=== PATIENT | female | born 1945 | race Caucasian/White ===

== ENCOUNTER 2018-03-21 15:57 | Inpatient (IN) | payer MEDICARE ==
--- NOTE | 2018-03-21 17:14 | RAD ---
CHEST ONE VIEW: 03/21/18 HISTORY: 72-year-old female with history of altered mental status. FINDINGS: Old granuloma calcifications. Heart size is within normal limits. The lungs are clear of acute proces s. No confluent pneumonia, overt edema, or pleural effusion. There is rotation to the right. IMPRESSION: Old granulomatous disease. Atherosclerosis of the aorta. No significant acute process. POS: [facility]
[2018-03-21 17:21] LABS: #Basophils 0.1 thou/uL (0.0-0.2); #Eosinphils 0.1 thou/uL (0.0-0.7); #Lymphocytes 1.7 thou/uL (1.20-3.40); #Monocytes 0.5 thou/uL (0.11-0.59); #Neutrophils 3.4 thou/uL (1.40-6.50); %Basophils 2.2 % (0.0-1.0); %Lymphocytes 28.9 % (21.0-51.0); Hemoglobin 13.8 g/dL (12.0-16.0); Mean Corpuscular Hemoglobin 31.8 pg (27.0-31.0); Mean Corpuscular Volume 93.5 fL (78.0-98.0); Mean Platelet Volume 7.8 fL (7.4-10.4); Platelet Count 211 thou/uL (130-400); RBC Distribution Width 11.5 % (11.5-14.5); Red Blood Cell (RBC) Count 4.34 mill/uL (4.20-5.40); White Blood Cell (WBC) Count 5.8 thou/uL (4.8-10.8)
[2018-03-21 17:36] LABS: ALT (SGPT) 11 U/L (8-55); AST (SGOT) 17 U/L (5-34); Albumin 4.1 g/dL (3.4-4.8); Alkaline Phosphatase 154 U/L (40-150); Anion Gap 14 mmol/L (10-20); BUN (Urea Nitrogen) 17 mg/dL (9.8-20.1); Bilirubin, Total 0.3 mg/dL (0.2-1.2); CK (CPK) 63 U/L (29-168); Calc. Creatinine Clearance 0 mL/min (70-130); Calcium 9.8 mg/dL (7.8-10.44); Carbon Dioxide 27 mmol/L (23-31); Chloride 106 mmol/L (98-107); Estimated GFR-MDRD 45; Globulin 3.3 g/dL (2.4-3.5); Glucose 94 mg/dL (83-110); Potassium 4.1 mmol/L (3.5-5.1); Protein, Total 7.4 g/dL (6.0-8.3); Sodium 143 mmol/L (136-145)
[2018-03-21 17:44] LABS: Bilirubin Negative (Negative); Blood, Urine Negative (Negative); Clarity CLEAR (Clear); Glucose, Urine (Dipstick) Negative (Negative); Leukocyte Negative (Negative); Nitrite Negative (Negative); Protein, Urine (Dipstick) Negative (Neg-Trace); Specific Gravity, Urine 1.019 (1.002-1.036)
--- NOTE | 2018-03-21 18:03 | CT ---
NONCONTRAST CT HEAD: 03/21/18 HISTORY: Altered mental status. COMPARISON: None available. FINDINGS: There are punctate low density areas seen within the posterior right internal capsule and in the infe rior aspect of the left basal ganglia which may represent tiny lacunar infarctions of indeterminate a ge. There is no evidence of acute cortical infarction, hemorrhage, mass effect, midline shift. There is mild cerebral volume loss. Ventricular system is mildly prominent and slightly out of proportion t o the degree of sulcal atrophy. This is likely attributable to greater central cerebral atrophy. The visualized paranasal sinuses and mastoid air cells are clear. Calvarial structures are intact. Th ere is a small osseous excrescence at the inner table right anterior frontal bone which may represen t small osseous excrescence or possibly a meningioma. This measures 11 mm. IMPRESSION: No acute intracranial abnormality demonstrated. POS: [facility]
[2018-03-21] MEDS ORDERED: Haloperidol Lactate 5 MG/ML VIAL ONE (19:18)
[2018-03-21] MEDS ORDERED: Acetaminophen 325 MG TAB PO PRN (21:35)
[2018-03-21] MEDS ORDERED: Lorazepam 2 MG/ML VIAL SLOW IVP PRN (21:35)
--- NOTE | 2018-03-22 00:26 | HP ---
The patient's primary care is out of town. CHIEF COMPLAINT: Fall with a seizure on yesterday. HISTORY OF PRESENT ILLNESS: Ms. Nixon is a pleasant 72-year-old female who has advanced Alzheimer's disease. She was brought in by her son and daughter-in- law as they are concerned that she had a fall yesterday and apparently had a seizure. They said they are only finding out today as the detention kept this from them. She also apparently had a seizure and a fall about 2 weeks ago. At that time, she was taken to the [facility] in [facility] as it is close to the [facility] in [place] where she resides. Apparently at that time, she was evaluated. Apparently, she had an echocardiogram done and an EEG was attempted but was not able to be completed. She says the neurologist saw her, but it sounds like they had difficulty with her workup and she was discharged and none of her medications were changed. The family was concerned because seemingly after this, her speech has gone down and it has become more jumbled and she seems to have physically declined more since then. They noticed bruising on her legs where she apparently has fallen and they have not been given much information from the detention and they are not sure if in fact she had a seizure or what these episodes are. Apparently when they do happen, she seems to get stiff and shakes, but there was no mention of any bowel or bladder dysfunction or loss, but they say they are only going by what the detention staff tells them and it has been very limited. REVIEW OF SYSTEMS: This is unobtainable due to the patient's advanced dementia. PAST MEDICAL HISTORY: Significant for: 1. Hypertension. 2. Hyperlipidemia. 3. Hypothyroidism. 4. Alzheimer's disease. 5. Heart murmur as well as severe hemorrhoids. PAST SURGICAL HISTORY: She has dentures, but no known other surgeries or procedures. ALLERGIES: NO KNOWN DRUG ALLERGIES. SOCIAL HISTORY: She is a former heavy drinker. No smoking. She is , has two children. Her son, César Nixon Jr., is her surrogate decision maker and they would like her to be a DNR. FAMILY HISTORY: Significant for hypertension, high cholesterol, and congestive heart failure in her mother as well as her mother had an abdominal aortic aneurysm. CURRENT MEDICATIONS: Include aspirin 81 mg daily, amlodipine 2.5 mg daily, atorvastatin 20 mg daily, BuSpar 7.5 mg twice a day, donepezil 10 mg daily, fluoxetine 40 mg daily, levothyroxine 88 mcg once daily, Namenda 5 mg twice a day, mirtazapine 15 mg daily, propranolol 10 mg three times a day, and Seroquel 25 mg once daily. PHYSICAL EXAMINATION: GENERAL: She is completely disoriented. She did not recognize her son or [id number]. She is well-developed and well-nourished, and appears to be in no acute distress. VITAL SIGNS: Blood pressure was 138/99, heart rate 56, respiratory rate of 18, and temperature was 98.3. HEENT: Pupils are equal, round, and reactive. Extraocular muscles are intact. Her sclerae anicteric. Throat, there is no erythema, no exudates. NECK: There is no adenopathy. No bruits. LUNGS: Clear to auscultation. There was no wheezing, no rales, no rhonchi. CARDIOVASCULAR: She had a normal S1, S2. I did not appreciate an S3 or S4. She had a slight grade 2/6 systolic murmur. ABDOMEN: Obese. It is soft. It is nontender and nondistended. Positive for bowel sounds. No rebound or guarding. EXTREMITIES: There is no clubbing or cyanosis. No edema. NEUROLOGIC: The exam is nonfocal. LABORATORY DATA: Her white blood cell count is 5.8, hemoglobin 13.8, hematocrit is 40.6, and platelet count is 211. Sodium is 143, potassium 4.1, chloride is 106 , CO2 is 27, BUN is 17, creatinine 1.17, and glucose is 94. Urinalysis was essentially negative. IMAGING: She had a CT scan of the brain, which was negative for any acute intracranial abnormalities. This is by my reading. Chest x-ray also had some old granulomatous disease. Heart size was normal also by my reading. ASSESSMENT: This is a pleasant 72-year-old female who was brought to the emergency room by her family for two concerns. 1. Possible seizure disorder, which has not been fully elucidated. 2. They want to place her in a different nursing facility. Possible seizure disorder. We will need to get the records from the [facility] in the [place], see what was attempted and what was accomplished. We will attempt an MRI. She may need sedation for this. We will also order an EEG and we will consult our neurologist on staff. We will hold off on any antiepileptic medications for now and place her on Ativan p.r.n. for seizures. We will consult Case Management with regard to placement. Hypertension- We will continue her usual antihypertensive medications, which include the amlodipine and propranolol as well as p.r.n. medications. Hypothyroidism- Again, restart her usual levothyroxine. She appears to be clinically euthyroid; and further recommendations are to follow. Job ID: [id number] [facility]
[2018-03-22 05:13] LABS: #Eosinphils 0.1 thou/uL (0.0-0.7); #Lymphocytes 1.8 thou/uL (1.20-3.40); #Monocytes 0.5 thou/uL (0.11-0.59); %Basophils 0.8 % (0.0-1.0); %Eosinophils 2.4 % (0.0-10.0); %Lymphocytes 32.8 % (21.0-51.0); %Monocytes 8.9 % (0.0-10.0); %Neutrophils 55.2 % (42.0-75.0); Hemoglobin 12.1 g/dL (12.0-16.0); Mean Corpuscular HGB CONC 33.8 g/dL (32.0-36.0); Mean Corpuscular Hemoglobin 31.5 pg (27.0-31.0); Mean Corpuscular Volume 93.3 fL (78.0-98.0); Mean Platelet Volume 8.1 fL (7.4-10.4); Platelet Count 166 thou/uL (130-400); RBC Distribution Width 11.5 % (11.5-14.5); Red Blood Cell (RBC) Count 3.85 mill/uL (4.20-5.40); White Blood Cell (WBC) Count 5.4 thou/uL (4.8-10.8)
[2018-03-22 05:25] LABS: Anion Gap 9 mmol/L (10-20); BUN (Urea Nitrogen) 19 mg/dL (9.8-20.1); Calc. Creatinine Clearance 42 mL/min (70-130); Carbon Dioxide 28 mmol/L (23-31); Chloride 109 mmol/L (98-107); Estimated GFR-MDRD 55; Glucose 91 mg/dL (83-110); Sodium 142 mmol/L (136-145)
[2018-03-22] MEDS ORDERED: Non-Formulary Item 1 EACH (Fluoxetine Hcl [Prozac] 40 MG) PO SCH (09:00)
[2018-03-22] MEDS ORDERED: Prevnar 13-Val Conj/PF 0.5 ML SYRINGE IM ONE (09:00)
[2018-03-22] MEDS ORDERED: Non-Formulary Item 1 EACH (Buspirone Hcl [Buspirone Hcl] 7.5 MG) PO SCH (09:00)
[2018-03-22] MEDS: busPIRone HCl 5 MG TAB PO SCH ×2 (11:32→20:14)
[2018-03-22] MEDS: FLUoxetine HCl 20 MG CAP PO SCH (11:32)
[2018-03-22] MEDS: Mirtazapine 15 MG TAB PO SCH (11:33)
[2018-03-22] MEDS: Aspirin 81 mg Enteric Coated Tablet PO SCH (11:33)
[2018-03-22] MEDS: Propranolol 10 MG TAB PO SCH ×3 (11:33→21:59)
[2018-03-22] MEDS: Donepezil HCl 10 MG TAB PO SCH (11:33)
[2018-03-22] MEDS: Amlodipine 5 MG TAB PO SCH (11:34)
--- NOTE | 2018-03-22 11:38 | MRI ---
BRAIN MRI WITH AND WITHOUT CONTRAST: Date: 03/22/18 INDICATION: Altered mental status. Reference made to head CT previous day. FINDINGS: Prominence of ventricular system. No acute territorial infarction, intracranial mass effect, or midli ne shift. There is mild chronic ischemic disease of the cerebral white matter. No pathologic intra-ax ial enhancement. There is prominent patient motion which degrades image quality and does limit evalua tion. IMPRESSION: 1. Enlarged ventricular system, which is out of proportion to size of cerebral sulci. This can be se en in the setting of normal pressure hydrocephalus. Correlate clinically. 2. No acute territorial infarction or mass effect. 3. Additional details are as described above. POS: [facility]
--- NOTE | 2018-03-22 14:02 | PDOC.PN ---
- Subjective Encounter Start Date: 03/22/18 Encounter Start Time: 14:01 Ms. Nixon was seen today in follow-up of possible new onset seizures and frequent falls. She looks comfortable. - Objective Resuscitation Status - Order Detail: 03/21/18 20:17 Resuscitation Status Routine Resuscitation Status: DNAR: NO Resuscitation Discussed with: César Nixon- son LAMONT Reviewed: Yes Vital Signs & Weight: Vital Signs (12 hours) Temp Pulse Resp BP BP Pulse Ox 03/22/18 11:52 98.2 F 50 L 16 114/55 L 97 03/22/18 11:34 50 L 114/55 L 03/22/18 07:55 98.1 F 69 18 113/65 97 03/22/18 05:58 97.5 F L 75 16 129/70 95 Weight Weight 115 lb 1.301 oz Result Diagrams: 03/22/18 04:16 03/22/18 04:16 Phys Exam - Physical Examination HEENT: PERRLA Respiratory: no wheezing, no rales, no rhonchi, clear to auscultation bilateral Cardiovascular: RRR, no significant murmur, no rub Gastrointestinal: soft, non-tender, no distention, positive bowel sounds Musculoskeletal: no edema, pulses present Dx/Plan (1) Seizure Code(s): R56.9 - UNSPECIFIED CONVULSIONS Status: Acute (2) Advanced dementia Code(s): F03.90 - UNSPECIFIED DEMENTIA WITHOUT BEHAVIORAL DISTURBANCE Status: Chronic (3) Hypertension Code(s): I10 - ESSENTIAL (PRIMARY) HYPERTENSION Status: Chronic (4) Hypothyroidism Code(s): E03.9 - HYPOTHYROIDISM, UNSPECIFIED Status: Chronic - Plan * ? Seizure- still awaiting the results of the EEG * MRI results noted- Enlarged Ventricles- ? significance * Await further recommendations from Neurology * HTN- blood pressure is stable * Hypothyroidism- stable- TSH is slightly elevated, but her dose of Levothyroxine can be adjusted as an outpatient.
--- NOTE | 2018-03-22 15:56 | CON ---
DATE OF CONSULTATION: CHIEF COMPLAINT: Seizures. HISTORY OF PRESENT ILLNESS: History was obtained from her son over the phone plus the chart. The patient was unable to give any history. The patient's son stated she is 72 years old and about 4-1/2 years ago, her . They thought she was having a mental breakdown because she was getting angry and forgetful and eventually, she was placed in a memory care facility 4 years ago with a diagnosis of Alzheimer's. In the last 9 months, she has worsened and she is no longer able to shower. 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 She no longer recognizes her family. She had a seizure on 06 of March, which was described as loss of consciousness. She was stiff. She passed out, hit the table. It lasted for a minute. She also became diaphoretic and she had low heart rate. She was taken to [facility] in [place]. They could not perform an EEG or MRI. Two days ago, she had another episode and family brought her here for further workup. She has been reluctant to see doctors and refused doctor visits over the years. Therefore, she never had an MRI or even an EEG performed. PREVIOUS MEDICAL HISTORY: Significant for hypertension, hyperlipidemia, hypothyroidism, Alzheimer's, heart murmur, and hemorrhoids. SURGICAL HISTORY: She has dentures. No other known surgeries. Son did not give me any specific history for surgeries. ALLERGIES: NO KNOWN DRUG ALLERGIES. SOCIAL HISTORY: She used to drink a lot. Nonsmoker. She is . Has two children and lives at a memory care facility for the last 4 years. FAMILY HISTORY: Negative for any dementia, but positive for hypertension, high cholesterol, and congestive heart failure. MEDICATIONS: At home include, 1. Aspirin. 2. Amlodipine. 3. Atorvastatin. 4. BuSpar. 5. Donepezil. 6. Fluoxetine. 7. Levothyroxine. 8. Namenda. 9. Mirtazapine. 10. Propranolol. 11. She also receives Seroquel at night. REVIEW OF SYSTEMS: Unable to obtain due to her current mental status. LABORATORY WORKUP: White count 5.4, hemoglobin 12.1, hematocrit 35.9, platelet count 166. Sodium 142, potassium 4, chloride 109, bicarb 28, BUN 19, creatinine 1. Glucose 91. TSH 8.1, prolactin 55, and free T4 is 0.98. Her MRI of the brain is positive for enlarged ventricular system, out of proportion to the size of cerebral sulci can be seen in the setting of normal-pressure hydrocephalus. No acute infarct or mass effect. She does have mild chronic ischemic changes. PHYSICAL EXAMINATION: VITAL SIGNS: Blood pressure 113/65, temperature 98.1, pulse is 69, respiratory rate 18. GENERAL APPEARANCE: Thin built lady, who seems comfortable and is having breakfast. She does not maintain any conversation. CHEST: Clear vesicular breathing. CARDIOVASCULAR: S1, S2 heard with systolic murmur. ABDOMEN: Soft. NEUROLOGICAL EXAMINATION: She is unable to maintain a conversation. Not oriented to time, place, or person. Cranial nerve examination; pupils are reactive to light at 2 mm. No facial asymmetry noted. Tongue midline. No atrophy noted. Motor examination; bulk normal, tone normal. Strength appears to be intact in upper and lower extremities. She tries to follow commands, but is unable to do so. Deep tendon reflexes 1+ throughout. Involuntary movements; she has bilateral upper extremity and toribio tremor, left upper extremity tremor 3+ at rest and action bilaterally and then in lower extremity, no tremor was noted. Cerebellar and sensory; difficult to assess. IMPRESSION: The patient is a 72-year-old lady with confusion and dementia. The patient never had a full workup for any of her symptoms and her examination shows confusion, inability to maintain a conversation, and the patient has an intact strength, but appears to have significant tremor bilaterally in the upper extremity, mostly at rest. Clinical diagnosis is most consistent with possible seizure in the setting of Alzheimer's plus based on MRI scan, she seems to have potential normal-pressure hydrocephalus, and she also has upper extremity tremor. EEG is pending at this time. TREATMENT PLAN: Suggest starting her on Keppra. Once EEG is obtained, we can see if there is any underlying seizure disorder. She will need cisternogram and further workup for the normal-pressure hydrocephalus. We will make arrangements for her to have the test done in addition to just management of her seizures. I will continue to follow her during this hospital stay. Job ID: [id number]
[2018-03-22] MEDS: Atorvastatin Calcium 20 MG TAB PO SCH (20:13)
[2018-03-23] MEDS ORDERED: Levothyroxine 150 MCG TAB PO SCH (06:00)
[2018-03-23] MEDS: Levothyroxine Sodium 88 MCG TAB PO SCH (06:24)
[2018-03-23] MEDS: Donepezil HCl 10 MG TAB PO SCH (08:25)
[2018-03-23] MEDS: busPIRone HCl 5 MG TAB PO SCH ×2 (08:25→20:52)
[2018-03-23] MEDS: Aspirin 81 mg Enteric Coated Tablet PO SCH (08:25)
[2018-03-23] MEDS: FLUoxetine HCl 20 MG CAP PO SCH (08:26)
[2018-03-23] MEDS: Mirtazapine 15 MG TAB PO SCH (08:26)
[2018-03-23] MEDS: Amlodipine 5 MG TAB PO SCH (08:26)
[2018-03-23] MEDS ORDERED: Propranolol 10 MG TAB PO SCH (09:00)
--- NOTE | 2018-03-23 11:39 | PDOC.PN ---
- Subjective Encounter Start Date: 03/23/18 Encounter Start Time: 11:36 Ms. Nixon was seen today in follow-up of seizures and altered mental status. she is a bit drowsy today. There have been no reported seizures. - Objective Resuscitation Status - Order Detail: 03/21/18 20:17 Resuscitation Status Routine Resuscitation Status: DNAR: NO Resuscitation Discussed with: César Nixon- son LAMONT Reviewed: Yes Vital Signs & Weight: Vital Signs (12 hours) Temp Pulse Resp BP BP Pulse Ox 03/23/18 08:26 56 L 91/51 L 03/23/18 08:00 98.4 F 69 16 91/51 L 100 03/23/18 04:00 97.7 F 43 L 18 96/51 L 95 03/23/18 00:00 97.2 F L 49 L 18 94/53 L 95 Weight Weight 115 lb 1.301 oz I&O: 03/22/18 03/23/18 03/24/18 06:59 06:59 06:59 Intake Total 750 Balance 750 Result Diagrams: 03/22/18 04:16 03/22/18 04:16 Phys Exam - Physical Examination HEENT: PERRLA Respiratory: no wheezing, no rales, no rhonchi, clear to auscultation bilateral Cardiovascular: RRR, no significant murmur, no rub Gastrointestinal: soft, non-tender, no distention, positive bowel sounds Musculoskeletal: no edema Dx/Plan (1) Seizure Code(s): R56.9 - UNSPECIFIED CONVULSIONS Status: Acute (2) Advanced dementia Code(s): F03.90 - UNSPECIFIED DEMENTIA WITHOUT BEHAVIORAL DISTURBANCE Status: Chronic (3) Hypertension Code(s): I10 - ESSENTIAL (PRIMARY) HYPERTENSION Status: Chronic (4) Hypothyroidism Code(s): E03.9 - HYPOTHYROIDISM, UNSPECIFIED Status: Chronic - Plan * Seizure disorder- Discussed with Dr. Daniel- Will continue Keppra- and will change to p.o. * Enlarged Cerebral Ventricles- also discussed- Will likely need to have this worked up as an outpatient- with Neurology follow-up- She can have either a cisternogram performed, or trial of large volume removal of CSF - this can be at the discretion of the treating Neurologist/Neurosurgeon * Advanced Dementia- she is unable to care for herself- plans are in progress to transfer her to a Nursing Facility in [place].
--- NOTE | 2018-03-23 17:53 | PRG ---
DATE OF SERVICE: 03/23/2018 CHIEF COMPLAINT: Altered mental status due to dementia and possible seizure. INTERVAL HISTORY: The patient is doing well and no further seizures were noted this morning prior to our telemedicine visit. The patient apparently had breakfast and was agitated when confronted. She is a bit drowsy today, and there is no additional labs or investigations pending at this time. OBJECTIVE: VITAL SIGNS: Blood pressure was 91/51, temperature was 98.4, and pulse is 69. GENERAL APPEARANCE: Sleepy, but arousable and tries to respond, but goes right back to sleep. NEUROLOGIC: Motor examination, she is moving all 4 extremities. Not very cooperative today. Cranial nerves, no facial asymmetry noted. IMPRESSION: The patient is a 72-year-old lady with advanced dementia. 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 At this time, the patient completed her workup including MRI and EEG. Preliminary report does not show any active seizures, but there is myogenic artifact due to her tremor, and final report of the EEG is pending at this time. Clinical exam shows that she is somewhat drowsy, could be due to medication effect or tiredness. At this time, we still need to workup her possible normal-pressure hydrocephalus. TREATMENT PLAN: 1. Continue Keppra for seizures. 2. She needs evaluation of her normal-pressure hydrocephalus including cisternogram as well as LPs and further testing for evaluation for [employer] shunt. This can be done as an outpatient. I will see her as needed. I will also communicate this thing with her family. Job ID: [id number] [facility]
[2018-03-23] MEDS: levETIRAcetam 500 MG TAB PO SCH (20:53)
[2018-03-23] MEDS: Atorvastatin Calcium 20 MG TAB PO SCH (20:53)
[2018-03-24] MEDS: Levothyroxine Sodium 88 MCG TAB PO SCH (06:11)
[2018-03-24] MEDS: busPIRone HCl 5 MG TAB PO SCH (09:20)
[2018-03-24] MEDS: Aspirin 81 mg Enteric Coated Tablet PO SCH (09:21)
[2018-03-24] MEDS: levETIRAcetam 500 MG TAB PO SCH (09:21)
[2018-03-24] MEDS: Mirtazapine 15 MG TAB PO SCH (09:21)
[2018-03-24] MEDS: FLUoxetine HCl 20 MG CAP PO SCH (09:21)
[2018-03-24] MEDS: Donepezil HCl 10 MG TAB PO SCH (09:21)
[2018-03-24 11:52] VITALS: BP 104/57; TEMP 97.8
--- NOTE | 2018-03-24 12:46 | PDOC.PN ---
- Subjective Encounter Start Date: 03/24/18 Encounter Start Time: 12:42 Ms. Nixon was seen today in follow-up of probable seizure. She is resting in bed. She will wake and talk with you. - Objective Resuscitation Status - Order Detail: 03/21/18 20:17 Resuscitation Status Routine Resuscitation Status: DNAR: NO Resuscitation Discussed with: César Nixon- son LAMONT Reviewed: Yes Vital Signs & Weight: Vital Signs (12 hours) Temp Pulse Resp BP Pulse Ox 03/24/18 11:51 97.8 F 61 18 104/57 L 97 03/24/18 07:56 97.9 F 51 L 16 105/57 L 99 03/24/18 04:00 98.9 F 98 19 128/60 94 L Weight Weight 115 lb 1.301 oz I&O: 03/23/18 03/24/18 03/25/18 06:59 06:59 06:59 Intake Total 750 550 Balance 750 550 Result Diagrams: 03/22/18 04:16 03/22/18 04:16 Phys Exam - Physical Examination HEENT: PERRLA Respiratory: no wheezing, no rales, no rhonchi, clear to auscultation bilateral Cardiovascular: RRR, no significant murmur, no rub Gastrointestinal: soft, non-tender, no distention, positive bowel sounds Musculoskeletal: pulses present, edema present trace pedal edema Dx/Plan (1) Seizure Code(s): R56.9 - UNSPECIFIED CONVULSIONS Status: Acute (2) Advanced dementia Code(s): F03.90 - UNSPECIFIED DEMENTIA WITHOUT BEHAVIORAL DISTURBANCE Status: Chronic (3) Hypertension Code(s): I10 - ESSENTIAL (PRIMARY) HYPERTENSION Status: Chronic (4) Hypothyroidism Code(s): E03.9 - HYPOTHYROIDISM, UNSPECIFIED Status: Chronic - Plan * Seizure Disorder- continue Keppra * HTN- her blood pressure is better off Amlodipine * Bradycardia- improved off Propranolol- I reveiwed her records from [facility], and She was seen by Cardiology with regards to the Bradycardia, she had an Echo , and it was recommended that she stop Propranolol, and no further work-up was necessary. * She is stable for discharge and will need outpatient Neurology follow-up.
--- NOTE | 2018-03-25 15:17 | DIS ---
DATE OF ADMISSION: 03/23/2018 DATE OF DISCHARGE: 03/24/2018 DISCHARGE DISPOSITION: To the [facility]. DISCHARGE DIAGNOSES: 1. Seizure disorder. 2. Advanced dementia. 3. Possible normal pressure hydrocephalus. 4. Bradycardia. 5. . 6. Hypothyroidism. DISCHARGE MEDICATIONS: 1. Please note that propranolol has been discontinued due to bradycardia and amlodipine was discontinued due to hypotension. 2. Keppra 500 mg twice a day was added. 3. Continue Seroquel 25 mg daily. 4. Remeron 15 mg daily. 5. Namenda 5 mg twice daily. 6. Levothyroxine 88 mcg p.o. daily. 7. Prozac 40 mg daily. 8. Donepezil 10 mg daily. 9. BuSpar 7.5 mg twice daily. 10. Lipitor 20 mg at bedtime. 11. Aspirin 81 mg a day. PROCEDURES DONE DURING ADMISSION: The patient had a CT scan of the brain and it showed no acute intracranial abnormality. She had an MRI of the brain, in which there was no evidence of any infarct. There was no mass. There was no bleed. However, it was noted that she had enlarged ventricular system, which was out of proportion to the size of the cerebral sulci, which could be seen in normal-pressure hydrocephalus. CODE STATUS: DNAR. ALLERGIES: NO KNOWN DRUG ALLERGIES. HOSPITAL COURSE: Ms. Nixon is a pleasant 72-year-old female, who was brought to the hospital due to concerns for possible seizure. The full details of which are outlined in my history and physical. She resides in a nursing facility, and unfortunately, this was not witnessed. She had actually had a workup for similar episode at the [facility] in [facility]. At that time, they were unable to perform an MRI or an EEG, possibly as a result of her advanced dementia. We were able to accomplish the MRI and the EEG during this hospital stay, and she was seen by our neurologist. On the EEG, there are some nonspecific waveforms; however, it is probable that she may have had a seizure, and therefore, she will be maintained on Keppra. MRI did demonstrate some evidence of enlarged ventricular system. She will need an evaluation for normal-pressure hydrocephalus. I did explain this to the patient's son. Normally, this is done in our area as an outpatient. Typically, she will be seen in the outpatient setting by a neurologist, who will then perform a large volume lumbar puncture to see if this would improve her symptoms. We would be referring her to Dr. Rachel to perform this procedure. Also, the patient was noted to be bradycardic in review of her records from [facility]. She was evaluated for this during that time. She was seen by seo intern and had an echocardiogram and had been recommended to stop her beta-siddharth. It is unclear why she was started back on propranolol. However, we discontinued that during her hospital stay and her heart rate improved from the low 50s and upper 40s back up to around 60. Also, amlodipine was discontinued due to borderline low blood pressure. The family requested placement in a different nursing facility. We consulted Case Management to help facilitate this, and she was discharged to the [facility]. Job ID: [id number]
--- NOTE | 2018-03-27 14:09 | EEG ---
Referring Physician: Pavan MOY EEG # [id number] TEST TYPE: ROUTINE PORTABLE INPATIENT REPORT: AN EEG USING THE INTERNATIONAL TEN-TWENTY SYSTEM OF ELECTRODE PLACEMENT WAS PERFORMED. The background activity was predominately a mixed frequency slowing ranging from as low as 3 hertz and up to around 7 hertz Theta. Occasional Alpha activity was seen. Photic stimulation was unremarkable. No epileptiform features were present. IMPRESSION: THIS IS AN ABNORMAL STUDY FOR THE FINDINGS OF DIFFUSE SLOWING CONSISTENT WITH A DIFFUSE ENCEPHALOPATHIC PROCESS. [employer] Technician: [employer] Senior Sergeant: EEG.DANGELO NEAL
== END 2018-03-24 15:19 | DRG 101 ==
LOC: ERS 15:57 → T4-A 19:16 → ERHOLD 20:26 → 2SE 20:56 → OBSVTOIN 03-23 15:33
PROVIDERS: ADMIT Internal Medicine; ATTEND Internal Medicine
PROC: 4A00X4Z Measurement of Central Nervous Electrical Activity, External Approach (ICD-10-PCS; principal; 2018-03-23)
DX: G40.909 Epilepsy, unspecified, not intractable, without status epilepticus (principal); G91.9 Hydrocephalus, unspecified; G30.9 Alzheimer's disease, unspecified; F02.80 Dementia in other diseases classified elsewhere, unspecified severity, without behavioral disturbance, psychotic disturbance, mood disturbance, and anxiety; R00.1 Bradycardia, unspecified; I10 Essential (primary) hypertension; E78.5 Hyperlipidemia, unspecified; E03.9 Hypothyroidism, unspecified
CPT/HCPCS: 36415; 51701; 70450; 70553; 71045; 80048; 80053; 81003; 82550; 83735; 84146; 84439; 84443; 84484; 85025; 93005; 95816; 95819; 96374; A4353; J1630; J1953